=== PATIENT | male | born 1945 | race Caucasian/White ===

== ENCOUNTER 2018-03-23 04:51 | Emergency (ER) | payer MEDICARE, BC ==
[2018-03-23] MEDS ORDERED: Aspirin 81 MG Tab.Chew ONE (05:11)
[2018-03-23] MEDS ORDERED: Nitroglycerin 0.4 MG Tab.SL ONE (05:11)
[2018-03-23] MEDS ORDERED: Nitroglycerin 0.4 MG Tab.SL SL PRN (05:14)
[2018-03-23] MEDS ORDERED: Tenecteplase 50 MG Kit ONE (05:21)
[2018-03-23] MEDS ORDERED: Heparin Sodium 5,000 Units/ML Vial ONE (05:27)
[2018-03-23] MEDS ORDERED: Heparin Sodium/D5W 500 ML ONE (05:27)
[2018-03-23] MEDS ORDERED: Heparin Sodium 5,000 Units/ML Vial IVPUSH ONE (05:34)
--- NOTE | 2018-03-23 06:07 | EDM.PDOC ---
ED HPI GENERAL MEDICAL PROBLEM - General Chief Complaint: Chest Pain Stated Complaint: CHEST PAINS Time Seen by Provider: 03/23/18 04:55 - History of Present Illness INITIAL COMMENTS - FREE TEXT/NARRATIVE: 72-year-old male presents emergency room with chest pain. Patient awoke around 3:30 this morning with significant chest pain. This awoke him. A reminds him very much of prior MIs he had 2 MIs in 2001 2002 each 1 accompanied by a stent as he recall they were right-sided stents and these right -sided dominant. He rates his pain as 7/10 and maximally it was a 7/10 the patient is not on any anticoagulation at this point he is allergic Plavix he does take an aspirin. Patient denies any diabetes family history is negative for coronary artery disease the patient's father prematurely from rheumatic fever when the patient was 5 years old the patient has never smoked. Right Chest Pain Score (Numeric/FACES): 7 - Related Data Allergies Allergy/AdvReac Type Severity Reaction Status Date / Time clopidogrel [From Plavix] Allergy Redness Verified 03/23/18 05:13 Past Medical History Cardiovascular History: Reports: CO, Stents - Past Surgical History HEENT Surgical History: Reports: Tonsillectomy GI Surgical History: Reports: Other (See Below) Other GI Surgeries/Procedures: lap band Male Surgical History: Reports: Prostatectomy Musculoskeletal Surgical History: Reports: Knee Replacement, Shoulder Surgery Social & Family History - Family History Family Medical History: Noncontributory - Tobacco Use Smoking Status *Q: Never Smoker Second Hand Smoke Exposure: No - Caffeine Use Caffeine Use: Reports: Coffee, Tea - Recreational Drug Use Recreational Drug Use: No ED ROS GENERAL - Review of Systems Review Of Systems: See Below Constitutional: Reports: No Symptoms HEENT: Reports: No Symptoms Respiratory: Reports: No Symptoms Cardiovascular: Reports: Chest Pain, Blood Pressure Problem, Other (He is treated for hypertension hyperlipidemia he takes an aspirin for his known atherosclerotic cardiovascular disease) Endocrine: Reports: No Symptoms GI/Abdominal: Reports: No Symptoms : Reports: No Symptoms Musculoskeletal: Reports: No Symptoms Skin: Reports: No Symptoms Neurological: Reports: No Symptoms ED EXAM, GENERAL - Physical Exam Exam: See Below Exam Limited By: No Limitations General Appearance: Alert, No Apparent Distress, Other (Rates his pain as 7/10) Head: Atraumatic, Normocephalic Neck: Normal Inspection, Supple, Non-Tender, Full Range of Motion, Other (No JVD ). No: Lymphadenopathy (L), Lymphadenopathy (R) Respiratory/Chest: Lungs Clear, Normal Breath Sounds, No Accessory Muscle Use Cardiovascular: Regular Rate, Rhythm, No Edema, No Murmur, Bradycardia (Rate in the 50s) GI/Abdominal: Normal Bowel Sounds, Soft, Non-Tender Extremities: Other (Scant edema) Neurological: Alert, Oriented, Normal Cognition EKG INTERPRETATION EKG Date: 03/23/18 Rhythm: Other (Sinus bradycardia) P-Wave: Present QRS: Normal ST-T: Elevated (Borderline diagnostic for inferior CO in leads 2 and 3 nondiagnostic in III reciprocal changes in aVL V1 V2 V3.) QT: Normal Comparison: NA - No Prior EKG EKG Interpretation Comments: STEMI Course - Vital Signs Last Recorded V/S: Last Vital Signs Temp 35.6 C 03/23/18 04:56 Pulse 54 L 03/23/18 04:56 Resp 14 03/23/18 04:56 BP 171/83 H 03/23/18 04:56 Pulse Ox 98 03/23/18 04:56 - Orders/Labs/Meds Orders: Active Orders 24 hr Category Date Time Status Chest 1V Frontal [CR] Stat Exams 03/23/18 05:16 Ordered CBC W/O DIFF,HEMOGRAM [HEME] MOTH@0700 Lab 03/25/18 07:00 Ordered CBC W/O DIFF,HEMOGRAM [HEME] MOTH@0700 Lab 03/29/18 07:00 Ordered CBC W/O DIFF,HEMOGRAM [HEME] MOTH@0700 Lab 04/01/18 07:00 Ordered CBC W/O DIFF,HEMOGRAM [HEME] MOTH@0700 Lab 04/05/18 07:00 Ordered CBC W/O DIFF,HEMOGRAM [HEME] MOTH@0700 Lab 04/08/18 07:00 Ordered CBC W/O DIFF,HEMOGRAM [HEME] MOTH@0700 Lab 04/12/18 07:00 Ordered INR,PT,PROTHROMBIN TIME [COAG] Stat Lab 03/23/18 05:16 Ordered PTT,PARTIAL THROMBOPLSTIN TIME [COAG] Stat Lab 03/23/18 05:16 Ordered Nitroglycerin [Nitrostat] Med 03/23/18 05:14 Ordered 0.4 mg SL Q5M PRN Medication Orders Nitroglycerin (Nitrostat) 0.4 mg SL Q5M PRN PRN Reason: Chest Pain Labs: Laboratory Tests 03/23/18 03/23/18 Range/Units 05:07 05:07 WBC 13.36 H (4.23-9.07) K/mm3 RBC 4.91 (4.63-6.08) M/mm3 Hgb 15.2 (13.7-17.5) gm/L Hct 43.8 (40.1-51.0) % MCV 89.2 (79.0-92.2) fl MCH 31.0 (25.7-32.2) pg MCHC 34.7 (32.2-35.5) g/dl RDW Std Deviation 43.3 (35.1-43.9) fL Plt Count 345 H (163-337) K/mm3 MPV 10.3 (9.4-12.3) fl Neutrophils % (Manual) 56 (40-60) % Band Neutrophils % 0 (0-10) % Lymphocytes % (Manual) 34 (20-40) % Atypical Lymphs % 0 % Monocytes % (Manual) 7 (2-10) % Eosinophils % (Manual) 2 (0.8-7.0) % Basophils % (Manual) 1 (0.2-1.2) Platelet Estimate Adequate RBC Morph Comment Normal Sodium 138 (136-145) mEq/L Potassium 4.1 (3.5-5.1) mEq/L Chloride 103 (98-107) mEq/L Carbon Dioxide 22 (21-32) mEq/L Anion Gap 17.1 H (5-15) BUN 19 H (7-18) mg/dL Creatinine 1.2 (0.7-1.3) mg/dL Est Cr Clr Drug Dosing 46.59 mL/min Estimated GFR (MDRD) 60 (>60) mL/min BUN/Creatinine Ratio 15.8 (14-18) Glucose 237 H (83-115) mg/dL Calcium 9.2 (8.5-10.1) mg/dL Total Bilirubin 0.4 (0.2-1.0) mg/dL AST 16 (15-37) U/L ALT 30 (16-63) U/L Alkaline Phosphatase 69 (46-116) U/L Troponin I 0.353 H* (0.00-0.056) ng/mL Total Protein 7.2 (6.4-8.2) g/dl Albumin 3.7 (3.4-5.0) g/dl Globulin 3.5 gm/dL Albumin/Globulin Ratio 1.1 (1-2) Meds: Medications Generic Name Dose Route Start Last Admin Trade Name Freq PRN Reason Stop Dose Admin Nitroglycerin 0.4 mg 03/23/18 05:14 Nitrostat SL Q5M PRN Chest Pain Discontinued Medications Generic Name Dose Route Start Last Admin Trade Name Freq PRN Reason Stop Dose Admin Aspirin Confirm 03/23/18 05:11 Aspirin Administered 03/23/18 05:12 Dose 324 mg .ROUTE .STK-MED ONE Heparin Sodium (Porcine) Confirm 03/23/18 05:27 Heparin Sodium Administered 03/23/18 05:28 Dose 5,000 units .ROUTE .STK-MED ONE Heparin Sodium (Porcine) 4,000 units 03/23/18 05:34 03/23/18 05:36 Heparin Sodium IVPUSH 03/23/18 05:35 4,000 units .BOLUS ONE Administration Heparin Sodium/Dextrose Confirm 03/23/18 05:27 Heparin 25,000 Units In D5w 500 Ml Administered 03/23/18 05:28 Dose 500 mls @ as directed .ROUTE .STK-MED ONE Nitroglycerin Confirm 03/23/18 05:11 Nitrostat Administered 03/23/18 05:12 Dose 0.4 mg .ROUTE .STK-MED ONE Tenecteplase Confirm 03/23/18 05:21 Tnkase Administered 03/23/18 05:22 Dose 50 mg .ROUTE .STK-MED ONE - Re-Assessments/Exams Free Text/Narrative Re-Assessment/Exam: 03/23/18 06:12 Patient's case discussed with Dr. Weiss at [facility] in [place] who agreed with giving thrombolytics at this point. Had a long discussion with the patient regarding the risks and benefits of thrombolytic therapy at that point the patient denied any recent surgeries or procedures no bleeding problems no stroke or anything like that. No history of bleeding problems he's not on any anticoagulation he does take an 81 mg aspirin daily he does not use Plavix in fact is allergic to Plavix no recent gastrointestinal bleeding or genitourinary bleeding no recent injuries. The patient anemia verbal okay for thrombolytic therapy understanding the risks and benefits. Patient was given TNKase followed by heparin bolus and heparin drip after all this was started the patient volunteers that he's been getting Lusenta injections into his right eye last injection to a half weeks ago for macular degeneration. This was discussed with Dr. Weiss it is felt that this should not be a problem he had already received the TNKase and was started on a heparin bolus when this information was volunteered. Patient will be transferred ground to [place] Departure - Departure Time of Disposition: 06:17 Disposition: DC/Tfer to Acute Hospital 02 Reason for Transfer *Q: Other Clinical Impression: ST elevation (STEMI) myocardial infarction Referrals: PCP,Not In Area [Primary Care Provider] - - My Orders Last 24 Hours: My Active Orders 03/23/18 05:14 Nitroglycerin [Nitrostat] 0.4 mg SL Q5M PRN 03/23/18 05:16 Chest 1V Frontal [CR] Stat INR,PT,PROTHROMBIN TIME [COAG] Stat PTT,PARTIAL THROMBOPLSTIN TIME [COAG] Stat 03/25/18 07:00 CBC W/O DIFF,HEMOGRAM [HEME] MOTH@69903/29/18 07:00 CBC W/O DIFF,HEMOGRAM [HEME] MOTH@69904/01/18 07:00 CBC W/O DIFF,HEMOGRAM [HEME] MOTH@69904/05/18 07:00 CBC W/O DIFF,HEMOGRAM [HEME] MOTH@69904/08/18 07:00 CBC W/O DIFF,HEMOGRAM [HEME] MOTH@69904/12/18 07:00 CBC W/O DIFF,HEMOGRAM [HEME] MOTH@0700 - Assessment/Plan Last 24 Hours: My Active Orders 03/23/18 05:14 Nitroglycerin [Nitrostat] 0.4 mg SL Q5M PRN 03/23/18 05:16 Chest 1V Frontal [CR] Stat INR,PT,PROTHROMBIN TIME [COAG] Stat PTT,PARTIAL THROMBOPLSTIN TIME [COAG] Stat 03/25/18 07:00 CBC W/O DIFF,HEMOGRAM [HEME] MOTH@0703/29/18 07:00 CBC W/O DIFF,HEMOGRAM [HEME] MOTH@69904/01/18 07:00 CBC W/O DIFF,HEMOGRAM [HEME] MOTH@69904/05/18 07:00 CBC W/O DIFF,HEMOGRAM [HEME] MOTH@69904/08/18 07:00 CBC W/O DIFF,HEMOGRAM [HEME] MOTH@69904/12/18 07:00 CBC W/O DIFF,HEMOGRAM [HEME] MOTH@699
[2018-03-23] MEDS ORDERED: Nitroglycerin/D5W 25 MG/250 ML BOTTLE ONE (06:10)
[2018-03-23] MEDS ORDERED: Nitroglycerin/D5W 25 MG/250 ML BOTTLE IV SCH (06:30)
[2018-03-23] MEDS ORDERED: Aspirin 81 MG Tab.Chew PO ONE (06:52)
[2018-03-23] MEDS ORDERED: Heparin Sodium/D5W 25,000 UNITS/500 ML BAG IV SCH (07:00)
--- NOTE | 2018-03-23 08:18 | CR ---
Chest: Frontal view of the chest was obtained. Comparison: No prior chest x-ray. Heart size appears within normal limits for technique. Tortuous thoracic aorta is seen. Lungs are clear without acute parenchymal change. Bony structures are grossly intact. Lap band is present. Impression: 1. Incidental findings. Nothing acute is seen. Diagnostic code #2
== END 2018-03-23 06:29 ==
LOC: JD.ED 04:51
DX: I21.3 ST elevation (STEMI) myocardial infarction of unspecified site (principal); I25.2 Old myocardial infarction; Z88.8 Allergy status to other drugs, medicaments and biological substances
CPT/HCPCS: 36415; 71045; 80053; 84484; 85007; 85027; 85610; 85730; 93005; 96365; 96375; 99285; A9270; J1644; J3101; 93010